=== PATIENT | male | born 1955 | race Caucasian/White ===

== ENCOUNTER 2023-02-15 05:58 | Inpatient (IN) | payer MEDICARE, OTHER ==
[2023-02-15] MEDS ORDERED: Sodium Chloride 0.9% 1,000 ML IV ONE (06:05)
[2023-02-15] MEDS ORDERED: Diltiazem 25 MG/5 ML SDV IVPUSH ONE (06:06)
[2023-02-15 06:10] LABS: BASOPHILS ABSOLUTE AUTO 0.05 K/uL (0.00-0.10); BASOPHILS PERCENT AUTO 0.5 % (0.1-1.3); EOSINOPHILS ABSOLUTE AUTO 0.06 K/uL (0.00-0.40); EOSINOPHILS PERCENT AUTO 0.6 % (0.0-5.4); HEMATOCRIT 49.9 % (38.4-49.7); HEMOGLOBIN 17.1 g/dL (12.9-16.9); IMMATURE GRAN ABSOLUTE AUTO 0.04 K/uL (0.00-0.23); IMMATURE GRAN PERCENT AUTO 0.4 % (0.0-0.7); LYMPHOCYTES ABSOLUTE AUTO 1.93 K/uL (0.8-3.3); MEAN CORPUSCULAR HEMOGLOBIN 31.7 pg (31.6-35.5); MEAN CORPUSCULAR HGB CONC 34.3 g/dL (31.6-35.5); MEAN CORPUSCULAR VOLUME 92.4 fL (81.4-99.0); MONOCYTES ABSOLUTE AUTO 0.69 K/uL (0.20-0.90); MONOCYTES PERCENT AUTO 6.4 % (3.3-12.6); NEUTROPHILS ABSOLUTE AUTO 7.95 K/uL (1.0-7.6); NEUTROPHILS PERCENT AUTO 74.1 % (40.0-78.1); PLATELET COUNT,PLT 262 K/uL (130-375); WHITE BLOOD CELL COUNT,WBC 10.7 K/uL (3.2-11.0)
[2023-02-15 06:28] LABS: CALCIUM 8.6 mg/dL (8.5-10.1); EST CRCL DRUG DOSING (CG) 78.44 mL/min; POTASSIUM,K 4.2 mmol/L (3.6-5.2); TROPONIN I HIGH SENSITIVITY 24.8 pg/mL (<=60.3)
[2023-02-15 06:31] LABS: ANION GAP 15.2 mmol/L (5.0-14.0)
[2023-02-15] MEDS ORDERED: Magnesium Oxide 400 MG Tab PO ONE (06:38)
[2023-02-15] MEDS ORDERED: Albuterol/Ipratropium 3.0-0.5 MG/3 ML Neb Soln NEB ONE (06:54)
[2023-02-15] MEDS ORDERED: Furosemide 40 MG/4 ML VIAL IVPUSH ONE ×2 (07:23→14:00)
[2023-02-15] MEDS: Diltiazem 100 MG in Sodium Chloride 0.9% 100 ML IV SCH ×2 (07:33→18:10)
[2023-02-15 07:50] LABS: CORONAVIRUS COVID-19 NAA NEGATIVE (NEGATIVE); INFLUENZA A NAA NEGATIVE (NEGATIVE); INFLUENZA B NAA NEGATIVE (NEGATIVE); RESPIRATORY SYNCYTIAL VIR NAA NEGATIVE (NEGATIVE)
[2023-02-15] MEDS ORDERED: Ondansetron 4 MG Tab.DIS PO PRN (09:33)
[2023-02-15] MEDS ORDERED: Magnesium Hydroxide 400 MG/5 ML Susp 30 ML Cup PO PRN (09:33)
[2023-02-15] MEDS ORDERED: Ondansetron 4 MG/2 ML SDV IV PRN (09:33)
[2023-02-15] MEDS ORDERED: Sennosides/Docusate Sodium 50-8.6 MG Tab PO PRN (09:33)
[2023-02-15] MEDS ORDERED: Acetaminophen 325 MG Tab PO PRN (09:33)
[2023-02-15] MEDS: Metoprolol Tartrate 25 MG Tab PO SCH ×2 (09:54→21:01)
[2023-02-15] MEDS: Enoxaparin 40 MG/0.4 ML Syringe SUBCUT SCH (09:58)
[2023-02-15] MEDS ORDERED: Magnesium Sulfate/Water 2 GM in Premix Bag 1 BAG IV SCH (10:00)
[2023-02-15] MEDS: Albuterol 0.083% 2.5 MG/3 ML Neb Soln NEB PRN (11:08)
[2023-02-16 05:24] LABS: CALCIUM 8.3 mg/dL (8.5-10.1); CREATININE 1.2 mg/dL (0.8-1.3); EST CRCL DRUG DOSING (CG) 65.36 mL/min; POTASSIUM,K 4.2 mmol/L (3.6-5.2)
[2023-02-16 05:25] LABS: ANION GAP 11.2 mmol/L (5.0-14.0)
[2023-02-16] MEDS: Albuterol 0.083% 2.5 MG/3 ML Neb Soln NEB PRN ×2 (07:38→21:24)
[2023-02-16] MEDS ORDERED: Furosemide 40 MG/4 ML VIAL IVPUSH ONE ×2 (08:00→15:00)
[2023-02-16] MEDS ORDERED: Furosemide 20 MG/2 ML VIAL IVPUSH ONE (08:00)
[2023-02-16] MEDS: Metoprolol Tartrate 25 MG Tab PO SCH ×2 (08:50→21:22)
[2023-02-16] MEDS: Diltiazem IR 30 MG Tab PO SCH ×3 (09:36→21:22)
[2023-02-16] MEDS: Enoxaparin 40 MG/0.4 ML Syringe SUBCUT SCH (12:54)
[2023-02-17] MEDS: Diltiazem IR 30 MG Tab PO SCH ×3 (04:18→21:12)
[2023-02-17 05:26] LABS: CALCIUM 8.6 mg/dL (8.5-10.1); CREATININE 1.2 mg/dL (0.8-1.3); EST CRCL DRUG DOSING (CG) 65.36 mL/min; POTASSIUM,K 4.2 mmol/L (3.6-5.2)
[2023-02-17 05:27] LABS: ANION GAP 10.2 mmol/L (5.0-14.0)
[2023-02-17] MEDS ORDERED: Furosemide 40 MG/4 ML VIAL IVPUSH ONE (08:00)
[2023-02-17] MEDS: Metoprolol Tartrate 25 MG Tab PO SCH ×2 (08:18→21:12)
[2023-02-17] MEDS ORDERED: Diltiazem 120 MG Cap.CD PO SCH (09:00)
[2023-02-17] MEDS ORDERED: Diltiazem IR 30 MG Tab PO SCH (09:00)
[2023-02-17] MEDS: Enoxaparin 40 MG/0.4 ML Syringe SUBCUT SCH (09:16)
[2023-02-17] MEDS ORDERED: Warfarin 5 MG Tab PO ONE (13:00)
[2023-02-17 13:21] LABS: INR 1.1; PROTHROMBIN TIME 11.2 sec (9.2-10.6)
[2023-02-18] MEDS: Diltiazem IR 30 MG Tab PO SCH (03:51)
[2023-02-18 05:07] LABS: CALCIUM 8.6 mg/dL (8.5-10.1); CREATININE 1.1 mg/dL (0.8-1.3); EST CRCL DRUG DOSING (CG) 71.31 mL/min; POTASSIUM,K 3.8 mmol/L (3.6-5.2)
[2023-02-18 05:09] LABS: INR 1.1
[2023-02-18 05:10] LABS: ANION GAP 10.8 mmol/L (5.0-14.0)
[2023-02-18] MEDS: Metoprolol Tartrate 25 MG Tab PO SCH (08:55)
[2023-02-18] MEDS ORDERED: Diltiazem 120 MG Cap.CD PO SCH (09:00)
[2023-02-18] MEDS: Enoxaparin 40 MG/0.4 ML Syringe SUBCUT SCH (10:42)
[2023-02-18] MEDS ORDERED: Warfarin 5 MG Tab PO ONE (13:00)
== END 2023-02-18 14:17 | disposition home or self-care (01) | DRG 291 ==
LOC: JP.ED 05:58 → JP.ICU 09:09
PROVIDERS: ADMIT Internal Medicine; ATTEND Hospitalist
DX: I11.0 Hypertensive heart disease with heart failure (principal); I50.31 Acute diastolic (congestive) heart failure; Z20.822 Contact with and (suspected) exposure to COVID-19; J96.01 Acute respiratory failure with hypoxia; I48.91 Unspecified atrial fibrillation; M19.90 Unspecified osteoarthritis, unspecified site; F17.210 Nicotine dependence, cigarettes, uncomplicated; I34.0 Nonrheumatic mitral (valve) insufficiency; Z11.52 Encounter for screening for COVID-19; Z79.899 Other long term (current) drug therapy
CPT/HCPCS: 0241U; 36415; 71045; 80048; 83735; 84484; 85025; 85610; 93005; 93306; 94640; A9270-GY; J1650; J1940; J3475; J3490; J7030; J7620